=== PATIENT | female | born 1960 | race Caucasian/White ===

== ENCOUNTER 2020-07-08 15:00 | Emergency (ER) | payer OTHER, SELFPAY ==
[2020-07-08 15:14] VITALS: BP 120/59; PULSE 81; RESP 15; TEMP 36.9; O2SAT 100; BMI 20.7
--- NOTE | 2020-07-08 15:47 | ED_ITS ---
HPI - Female Genitourinary General Chief complaint: Urogenital-Female Stated complaint: Pressure in Pelvic Region, Feels Something There Time Seen by Provider: 07/08/20 15:12 Source: patient Mode of arrival: Ambulatory Limitations: no limitations History of Present Illness HPI Narrative: The patient is a 6-year-old female with history of hysterectomy and bowel obstruction presenting today with a pressure an abnormality in her vagina. She states she went to lift a heavy wheelbarrow full of rocks when she suddenly felt something in her vagina that was abnormal. This actually happened to her number of years ago which point she needed a hysterectomy. She said that she had bowel obstruction at that time as well. She has not urinated since the incident. She has no abdominal pain nausea or vomiting. She. He has some abnormality in her vagina. MD Complaint: pelvic pain Review of Systems Review of Systems Narrative: GENERAL: Denies chills,fever HEENT: Denies throat pain RESPIRATORY: Denies dyspnea, cough, wheezing CARDIOVASCULAR: Denies chest pain, palpitations WAREHOUSE SUPERVISOR: See HPI GASTROINTESTINAL: Denies nausea, vomiting MUSCULOSKELETAL: Denies extremity pain, injury SKIN: No rash, no laceration, no pruritus NEUROLOGIC: Denies weakness, dizziness, headache, numbness 8 point review of systems is negative except for those stated above and HPI Patient History alcohol intake frequency: 0-2 drinks per day Substance Use Type: does not use Exam Initial Vital Signs Initial Vital Signs: Vital Signs Temperature 98.5 F 07/08/20 15:14 Pulse Rate 81 07/08/20 15:14 Respiratory Rate 15 07/08/20 15:14 Blood Pressure 120/59 L 07/08/20 15:14 Pulse Oximetry 100 07/08/20 15:14 GENERAL: Well-appearing, well-nourished and in no acute distress. CARDIOVASCULAR: peripheral pulses in tact, cap refill <2 sec RESPIRATORY: No respiratory distress, speaks in full sentences without difficulty ABDOMEN: Soft, nontender, no guarding or rebound PELVIC: External genitalia is normal, no obvious protrusion however when patient does bear down I am able to feel some swelling midline. EXTREMITIES: Normal range of motion, no clubbing or edema. Neurovascularly intact NEUROLOGICAL: Cranial nerves II through XII grossly intact. Normal gait and speech. SKIN: Warm, dry, no petechiae, no rashes or lesions. Course Vital Signs Vital signs: Vital Signs - 8 hr 08/15/20 15:14 07/08/20 16:29 Temperature 98.5 F Pulse Rate 81 77 Respiratory Rate 15 18 Blood Pressure 120/59 L 122/60 Pulse Oximetry 100 99 MDM - Female Genitourinary MDM Narrative Medical decision making narrative: At this time no sign or symptoms of bowel obstruction no imaging indicated. Patient likely has a cystocele I recommend outpatient OBGYN consultation and referral Discharge Plan Departure Patient Disposition: Home Clinical Impression: Cystocele Qualifiers: Cystocele location: midline Qualified Code(s): N81.11 - Cystocele, midline Discharge Date/Time: 07/08/20 16:32 Instructions: Cystocele/Rectocele Activity Restrictions/Additional Instructions: *You have been diagnosed with cystocele *What to do: You may require surgical repair with a offset plate preparation supervisor specialist, however non emergent at this time. *Continue to take medications as directed *Follow up with your primary care provider in 2-3 days *Return to ER if you should have increasing discomfort, or any new, worsening or concerning symptoms Referrals: Suellen Vital MD [Primary Care Provider] -
[2020-07-08 16:29] VITALS: BP 122/60; PULSE 77; RESP 18; O2SAT 99
== END 2020-07-08 16:32 | disposition home or self-care (01) ==
PROVIDERS: Emergency Provider Emergency Medicine; PCP Student in an Organized Health Care Education/Training Program
DX: N81.11 Cystocele, midline (principal)
CPT/HCPCS: 36415; 99283

== ENCOUNTER → 2020-10-13 12:09 | Outpatient (CLI) | payer OTHER, SELFPAY ==
--- NOTE | 2020-10-13 | DI.US.S_ITS ---
PROCEDURE: US PELVIC COMPLETE INDICATIONS: POST MENOPAUSE, Family history of malignant neoplas TECHNIQUE: Real-time scanning was performed of the pelvic organs, with image documentation. Additional endovaginal scanning was necessary due to incomplete visualization of the adnexal and endometrial structures by transabdominal scanning. COMPARISON: None. FINDINGS: Transabdominal scanning: Limited scanning through the kidneys shows no hydronephrosis. No pathologic free abdominal or pelvic fluid. Endovaginal scanning: Uterus: The uterus has been removed. The vaginal cuff is unremarkable. Ovaries: The right ovary measures 1.9 x 1 x 1.2 cm. The left ovary measures 2.3 x 1.2 x 1.2 cm. The ovaries have a normal sonographic appearance. No adnexal masses are seen. Normal appearing arterial waveforms are confirmed to each ovary. IMPRESSION: No ovarian masses or adnexal masses are seen. Dictated by: Jono Swanson M.D. on 10/13/2020 at 13:08 Approved by: Jono Swanson M.D. on 10/13/2020 at 13:12
== END ==
PROVIDERS: PCP Student in an Organized Health Care Education/Training Program; Referring Provider Student in an Organized Health Care Education/Training Program; Visit Provider Student in an Organized Health Care Education/Training Program
DX: Z78.0 Asymptomatic menopausal state (principal); Z80.41 Family history of malignant neoplasm of ovary
CPT/HCPCS: 76830; 76856; 77080

== ENCOUNTER → 2020-11-13 15:57 | Outpatient (CLI) | payer OTHER, SELFPAY ==
--- NOTE | 2020-11-13 16:01 | DI.MG.S_ITS ---
BILATERAL DIGITAL SCREENING MAMMOGRAM 3D/2D WITH CAD: 11/13/2020 CLINICAL: Routine screening. Family history of breast cancer. Comparison is made to exams dated: 08/18/2018 mammogram and 09/09/2017 mammogram - outside location. The tissue of both breasts is heterogeneously dense. This may lower the sensitivity of mammography. Current study was also evaluated with a Computer Aided Detection (CAD) system. No significant masses, calcifications, or other findings are seen in either breast. There has been no significant interval change. IMPRESSION: NEGATIVE There is no mammographic evidence of malignancy. A 1 year screening mammogram is recommended. This exam was interpreted at Station ID: [id number]. NOTE: For mammograms, a report in lay terms will be sent to the patient. Approximately 15% of breast malignancies will not be visualized mammographically. In the management of a palpable breast mass, a negative mammogram must not discourage biopsy of a clinically suspicious lesion. Electronically Signed By: Fidel pfeiffer/millie:11/13/2020 16:44:57 letter sent: Normal Exam ACR BI-RADS Category 1: Negative 3341F
== END ==
PROVIDERS: PCP Student in an Organized Health Care Education/Training Program; Referring Provider Student in an Organized Health Care Education/Training Program; Visit Provider Student in an Organized Health Care Education/Training Program
DX: Z12.31 Encounter for screening mammogram for malignant neoplasm of breast (principal); Z80.3 Family history of malignant neoplasm of breast
CPT/HCPCS: 77063; 77067

== ENCOUNTER → 2020-12-13 09:07 | Outpatient (CLI) | payer OTHER, SELFPAY ==
--- NOTE | 2020-12-13 | DI.US.S_ITS ---
PROCEDURE: US EXTREMITY NONVASC LOWER RT INDICATIONS: RIGHT UPPER LEG NODULE TECHNIQUE: Real-time scanning was performed of the right thigh, with image documentation. COMPARISON: None. FINDINGS: At the area of clinical concern, scanning is performed and reveals 2 mildly hyperechoic superficial lumps that measure 1 x 0.7 x 0.6 cm and 0.4 x 0.4 x 0.3 cm, respectively. No abnormal vascularity can be seen. IMPRESSION: Small superficial subcutaneous lumps are seen, which most likely represent atypical lipomas. Additional diagnostic possibilities, such as sarcoma, are possible, yet considered to be much less likely. If clinically appropriate, please consider a follow-up ultrasound in 3-6 months. Dictated by: Jono Swanson M.D. on 12/13/2020 at 9:05 Approved by: Jono Swanson M.D. on 12/13/2020 at 9:07
== END ==
PROVIDERS: PCP Student in an Organized Health Care Education/Training Program; Referring Provider Student in an Organized Health Care Education/Training Program; Visit Provider Student in an Organized Health Care Education/Training Program
DX: R22.41 Localized swelling, mass and lump, right lower limb (principal)
CPT/HCPCS: 76882

== ENCOUNTER → 2021-06-11 10:39 | Outpatient (CLI) | payer OTHER, SELFPAY ==
--- NOTE | 2021-06-11 | DI.US.S_ITS ---
PROCEDURE: US EXTREMITY NONVASC LOWER RT INDICATIONS: THREE MONTH FOLLOW UP LUMP TECHNIQUE: Real-time scanning was performed of the right anteromedial mid thigh , with image documentation. COMPARISON: [facility], , EXTREMITY NONVASC LOWER RT, 12/13/2020, 9:22. FINDINGS: Multiple grayscale color Doppler images of the right anteromedial mid thigh were acquired. Redemonstration of 2 oval subcutaneous hyperechoic masses which are oriented parallel to the skin surface. The 2 masses are immediately deep to the skin surface. The larger, more inferior mass measures 1.0 cm x 0.7 cm x 0.7 cm, previously 1.0 cm x 0.7 cm x 0.6 cm. There is mild adjacent vascularity. No internal vascularity seen. The smaller, more superior mass measures 0.3 cm x 0.4 cm x 0.3 cm, previously 0.4 cm x 0.4 cm x 0.3 cm. No new mass lesions identified. IMPRESSION: Stable sonographic appearance of oval subcutaneous echogenic masses likely representing lipomas. These have remained stable since November 2020. Consider follow-up imaging in 6-12 months to document long-term stability. If patient notices that these masses increase in size in the interim, recommend repeat imaging sooner. Dictated by: Fidel Dorsey M.D. on 06/11/2021 at 12:09 Approved by: Fidel Dorsey M.D. on 06/11/2021 at 12:15
== END ==
PROVIDERS: PCP Student in an Organized Health Care Education/Training Program; Referring Provider Student in an Organized Health Care Education/Training Program; Visit Provider Student in an Organized Health Care Education/Training Program
DX: R22.41 Localized swelling, mass and lump, right lower limb (principal)
CPT/HCPCS: 76882

== ENCOUNTER → 2021-12-17 11:09 | Outpatient (CLI) | payer OTHER, SELFPAY | PROVIDERS: PCP Student in an Organized Health Care Education/Training Program; Referring Provider Student in an Organized Health Care Education/Training Program; Visit Provider Student in an Organized Health Care Education/Training Program | DX: Z12.31 Encounter for screening mammogram for malignant neoplasm of breast (principal); Z53.8 Procedure and treatment not carried out for other reasons | CPT/HCPCS: 77063; 77067 ==

== ENCOUNTER 2021-12-30 20:01 | Emergency (ER) | payer OTHER, SELFPAY ==
[2021-12-30 20:10] VITALS: BP 152/70; PULSE 92; RESP 18; TEMP 37.2; O2SAT 99
[2021-12-30 20:27] LABS: Bilirubin Urine UA NEGATIVE (NEGATIVE); Color Urine UA RED; Glucose Urine UA TRACE g/dL (Negative); Ketones Urine UA NEGATIVE (NEGATIVE); Leukocyte Esterase Urine UA 1+ (NEGATIVE); Nitrite Urine UA NEGATIVE (Negative); Occult Blood Urine UA 3+ (Negative); Protein Urine UA 3+ (Negative); Urobilinogen Urine UA 0.2 E.U./dL (0.2)
[2021-12-30 20:30] LABS: Appearance Urine UA Turbid; RBC Urine >100/HPF (0-5/HPF); WBC Urine 10-30/HPF (0-5/HPF); pH Urine UA 7.5 (4.5-8.0)
[2021-12-30 20:31] LABS: Bacteria Urine Occasional (0-1); Culture Indicated Urine Specimen Cultured
--- NOTE | 2021-12-30 20:38 | ED.GENADULT ---
HPI - General Adult General Chief complaint: Urogenital-Female Stated complaint: blood in urin/painful to urine Time Seen by Provider: 12/30/21 20:21 Source: patient Mode of arrival: Ambulatory History of Present Illness HPI narrative: Otherwise healthy 61-year-old woman presents with acute dysuria, hematuria, low pelvic pain with increasing abdominal bloating all starting approximately 5-6 hours prior to presentation. She notes that she has frequent hot flashes and flushes but has not noticed any overt fevers. She has noticed flank pain, vomiting, diarrhea, constipation, chest pain, palpitations, shortness of breath. She has no vaginal discharge. Related Data Previous Rx's Medication Instructions Recorded phenazopyridine 100 mg tablet 100 mg PO TID PRN #6 tab 12/30/21 (Pyridium) sulfamethoxazole 800 1 tab PO BID #10 tab 12/30/21 mg-trimethoprim 160 mg tablet (Bactrim DS) Allergies Allergy/AdvReac Type Severity Reaction Status Date / Time No Known Drug Allergies Allergy Verified 12/30/21 20:28 Review of Systems Review of Systems Narrative: Remainder of complete review of systems is otherwise unremarkable except for that included in the HPI. Patient History Social History Smoking Status: Never smoker Smoking Status: Never smoker alcohol intake frequency: 0-2 drinks per day Substance Use Type: does not use Exam Initial Vital Signs Initial Vital Signs: Vital Signs Temperature 98.9 F 12/30/21 20:10 Pulse Rate 92 H 12/30/21 20:10 Respiratory Rate 18 12/30/21 20:10 Blood Pressure 152/70 H 12/30/21 20:10 Pulse Oximetry 99 12/30/21 20:10 General: Alert appropriate in no acute distress Respiratory: Able to speak in full sentences, no obvious respiratory distress Abdomen: Mild suprapubic tenderness. No flank pain Skin: No obvious rashes, warm and dry Neurologic: Grossly intact no obvious asymmetries or abnormalities Psych: appropriate insight and affect, cooperative Course Orders Ordered: Discontinued Medications Phenazopyridine HCl (Phenazopyridine 100 Mg Tablet) 100 mg PO NOW ONE Stop: 12/30/21 20:57 Last Admin: 12/30/21 21:04 Dose: 100 mg Documented by: CHRIS Trimethoprim/Sulfamethoxazole (Trimeth/Sulfa 160/800 (Ds) Tablet) 1 tab PO NOW ONE Stop: 12/30/21 20:57 Last Admin: 12/30/21 21:04 Dose: 1 tab Documented by: CHRIS Vital Signs Vital signs: Vital Signs - 8 hr 12/30/21 20:10 Temperature 98.9 F Pulse Rate 92 H Respiratory Rate 18 Blood Pressure 152/70 H Pulse Oximetry 99 Medical Decision Making Lab Data Labs: Lab Results 12/30/21 Range/Units 20:15 Urine Color Red Urine Appearance Turbid Urine pH 7.5 (4.5-8.0) Ur Specific [place] 1.020 (1.000-1.035) Urine Protein 3+ H (Negative) Urine Glucose (UA) Trace H (Negative) g/dL Urine Ketones Negative (NEGATIVE) Urine Occult Blood 3+ H (Negative) Urine Nitrate Negative (Negative) Urine Bilirubin Negative (NEGATIVE) Urine Urobilinogen 0.2 (0.2) E.U./dL Ur Leukocyte Esterase 1+ H (NEGATIVE) Urine RBC >100/hpf H (0-5/HPF) Urine WBC 10-30/hpf H (0-5/HPF) Urine Bacteria Occasional (0-1) (None) Ur Culture Indicated? Specimen cultured MDM Narrative Medical decision making narrative: 61-year-old woman with acute onset dysuria shortly followed by hematuria with urinalysis that very much looks like a urinary tract infection. She has no signs or symptoms to suggest sepsis, kidney stone or malignancy. She will be treated with Septra for 5 days with urine cultured. If culture suggests alternate antibiotic is required we will contact her by phone. Findings reviewed with her questions are answered and she is safe for home discharge Discharge Plan Departure Patient Disposition: Home Clinical Impression: Urinary tract infection Instructions: DI for Urinary Tract Infection (UTI) Activity Restrictions/Additional Instructions: Thank you for coming in today Your urinalysis very much looks like a bladder infection. I have given you a prescription for Septra/Bactrim/trimethoprim sulfamethoxazole -a sulfa antibiotic for treating bladder infections. Please take it twice a day for the next 5 days You can use peridium to help with the bladder discomfort Prescriptions were sent to [facility]' to be picked up tomorrow If you do develop fevers, worsening pain, kidney pain or new symptoms it would be very appropriate to return to the emergency department I hope you feel better quickly Prescriptions: New sulfamethoxazole-trimethoprim [Bactrim DS] 800-160 mg tablet 1 tab PO BID Qty: 10 0RF phenazopyridine [Pyridium] 100 mg tablet 100 mg PO TID PRN (Reason: pain) Qty: 6 0RF Referrals: Suellen Vital MD [Primary Care Provider] -
[2021-12-30] MEDS: TRIMETH/SULFA 160/800 (DS) TABLET 1 TAB PO (21:04)
[2021-12-30] MEDS: PHENAZOPYRIDINE 100 MG TABLET PO (21:04)
== END 2021-12-30 21:09 | disposition home or self-care (01) ==
PROVIDERS: Emergency Provider Emergency Medicine; PCP Student in an Organized Health Care Education/Training Program
DX: N39.0 Urinary tract infection, site not specified (principal)
CPT/HCPCS: 81001; 87077; 87086; 87186; 99283

== ENCOUNTER → 2022-01-15 12:40 | Outpatient (CLI) | payer OTHER, SELFPAY ==
--- NOTE | 2022-01-15 | DI.MG.S_ITS ---
BILATERAL DIGITAL DIAGNOSTIC MAMMOGRAM 3D/2D: 01/15/2022 CLINICAL: Left breast tenderness. Comparison is made to exams dated: 11/13/2020 mammogram - [facility], 08/18/2018 mammogram, and 09/09/2017 mammogram - outside location. The tissue of both breasts is heterogeneously dense. This may lower the sensitivity of mammography. No significant masses, calcifications, or other findings are seen in either breast. IMPRESSION: NEGATIVE There is no abnormality seen in the left breast to correspond with the area of clinical concern described as intermittent diffuse pain, however, recommend clinical follow up for persistent or worsening symptoms, or development of any clinically suspicious findings. There is no mammographic evidence of malignancy. A 1 year screening mammogram is recommended. Findings and recommendations were conveyed to the patient during today's evaluation. This exam was interpreted at Station ID: [id number]. NOTE: For mammograms, a report in lay terms will be sent to the patient. Approximately 15% of breast malignancies will not be visualized mammographically. In the management of a palpable breast mass, a negative mammogram must not discourage biopsy of a clinically suspicious lesion. Electronically Signed By: Fidel Dorsey M.D. aty/:01/15/2022 13:23:14 letter sent: Clinical Evaluation ACR BI-RADS Category 1: Negative 3341F
== END ==
PROVIDERS: PCP Student in an Organized Health Care Education/Training Program; Referring Provider Student in an Organized Health Care Education/Training Program; Visit Provider Student in an Organized Health Care Education/Training Program
DX: N64.4 Mastodynia (principal)
CPT/HCPCS: 77066; G0279

== ENCOUNTER → 2022-05-21 14:51 | Outpatient (CLI) | payer OTHER, SELFPAY ==
--- NOTE | 2022-05-21 | DI.RAD.S_ITS ---
PROCEDURE: XR CHEST 2V INDICATIONS: cough TECHNIQUE: 2 views of the chest were acquired. COMPARISON: None. FINDINGS: Surgical changes and devices: None. Lungs and pleura: Lungs are clear. No pleural effusions or pneumothorax. Mediastinum: Mediastinal contours are normal. Heart size is normal. Bones and chest wall: No suspicious bony abnormalities. Soft tissues appear unremarkable. IMPRESSION: No acute cardiopulmonary disease. Dictated by: Elzbieta Rashid M.D. on 05/21/2022 at 17:38 Approved by: Elzbieta Rashid M.D. on 05/21/2022 at 17:38
== END ==
PROVIDERS: PCP Internal Medicine; Referring Provider Internal Medicine; Visit Provider Internal Medicine
DX: R05.1 Acute cough (principal)
CPT/HCPCS: 71046

== ENCOUNTER → 2022-12-27 11:59 | Outpatient (ROUT) | payer OTHER, SELFPAY ==
[2022-12-27 12:42] LABS: Influenza A - CEPHEID Flu A NEGATIVE (NEGATIVE); Influenza B - CEPHEID Flu B NEGATIVE (NEGATIVE); Respiratory Syncytial Virus Negative (Negative)
[2022-12-27 12:45] LABS: COVID-19 CEPHEID 4-PLEX PCR Negative (Negative)
== END ==
PROVIDERS: PCP Internal Medicine; Visit Provider Registered Nurse
DX: J02.8 Acute pharyngitis due to other specified organisms (principal)
CPT/HCPCS: 0241U

== ENCOUNTER → 2023-02-27 15:16 | Outpatient (CLI) | payer OTHER, SELFPAY ==
--- NOTE | 2023-02-27 | DI.MG.S_ITS ---
BILATERAL DIGITAL SCREENING MAMMOGRAM 3D/2D WITH CAD: 02/27/2023 CLINICAL: Routine screening. Family history of breast cancer. Comparison is made to exams dated: 01/15/2022 mammogram and 11/13/2020 mammogram - [facility]. Both breasts are heterogeneously dense, which may obscure small masses (category c / 51-75% glandular tissue). Current study was also evaluated with a Computer Aided Detection (CAD) system. No significant masses, calcifications, or other findings are seen in either breast. There has been no significant interval change. IMPRESSION: NEGATIVE There is no mammographic evidence of malignancy. A 1 year screening mammogram is recommended. Based on the Tyrer Cuzick model (a risk assessment model) the patient's lifetime risk is 7.6% and her 10 year risk is 3.3%. According to the ACR, ACS, and NCCN guidelines, an annual breast MRI exam along with mammogram is recommended if the patient's lifetime risk is 20% or greater. This exam was interpreted at Station ID: [id number]. NOTE: For mammograms, a report in lay terms will be sent to the patient. Approximately 15% of breast malignancies will not be visualized mammographically. In the management of a palpable breast mass, a negative mammogram must not discourage biopsy of a clinically suspicious lesion. Electronically Signed By: Nemesio cardenas/millie:02/28/2023 09:51:42 letter sent: Normal Exam ACR BI-RADS Category 1: Negative 3341F
--- NOTE | 2023-02-27 15:43 | DI.DEXA.S_ITS ---
Bone Density Report Name: JEROME PEACE Age: 62 Sex: Female Ethnicity: White Date of : 1960 Indication: osteopenia; Referring Provider: JOHN GTZ Study: Bone densitometry was performed. Exam Date: February 27, 2023 Accession number: [id number] Bone Density: Region BMD T-score Z-score Classification AP Spine(L1-L4) 0.895 -1.4 0.2 Osteopenia Femoral Neck (Left) 0.616 -2.1 -0.7 Osteopenia Total Hip (Left) 0.737 -1.7 -0.6 Osteopenia Femoral Neck (Right) 0.548 -2.7 -1.3 Osteoporosis Total Hip (Right) 0.684 -2.1 -1.0 Osteopenia Total Hip Mean 0.710 -1.9 -0.8 Osteopenia World Health Organization criteria for BMD impression classify patients as: Normal (T-score at or above -1.0), Osteopenia (T-score between -1.0 and -2.5), or Osteoporosis (T-score at or below -2.5). 10-year Fracture Risk: FRAX not reported because: Some T-score for Spine Total or Hip Total or Femoral Neck at or below -2.5 Previous Exams: -- Region Exam Age BMD T-score BMD Change BMD Change Date g/cm2 vs Baseline vs Previous -- AP Spine (L1-L4) 02/27/2023 62 0.895 -1.4 -0.116 (-11.5%)# -0.116 (-11.5%)# 10/13/2020 60 1.011 -0.3 Total Hip(Left) 02/27/2023 62 0.737 -1.7 0.010 (1.4%)# 0.010 (1.4%)# 10/13/2020 60 0.727 -1.8 Total Hip(Right) 02/27/2023 62 0.684 -2.1 -0.033 (-4.6%)# -0.033 (-4.6%)# 10/13/2020 60 0.717 -1.8 -- *Denotes significance at 95% confidence level, LSC for AP Spine = 0.022 g/cm2, LSC for Total Hip = 0.027 g/cm2 # Denotes dissimilar scan types or analysis methods Impression: The patient has osteoporosis, based on the Right Femoral Neck T-score. No significant bone loss was observed. Discussion: INCREASED RISK OF FRACTURE. BONE DENSITY IS UNDESIRABLY LOW AT ONE OR MORE SKELETAL SITES, CONSISTENT WITH POSTMENOPAUSAL OSTEOPOROSIS. This patient's lowest T-score meets the World Health Organization's (WHO) criteria for osteoporosis at one or more sites (T-score -2.5 or below). In untreated patients, the risk of osteoporotic fracture increases approximately two-fold for each 1.0 SD decrease in T-score. Low bone density is not the only risk factor for fracture; also consider factors such as patient's age, frailty or poor health, risk of falling, risk of injury, previous osteoporotic fracture, family history of osteoporosis, cigarette smoking, low body weight, etc. Not everyone with low bone mineral density has osteoporosis; osteomalacia and other metabolic bone disorders should also be considered. Patients who have osteoporosis should be evaluated for specific diseases and conditions (secondary causes) that may cause or contribute to bone loss. The [place] Association [employer] Clinical Endocrinologists (AACE) and National Osteoporosis Foundation (NOF) recommend pharmacologic intervention for all postmenopausal women whose T-score is in this range. The patient should follow a healthful lifestyle (good nutrition with adequate calcium and vitamin D, and appropriate weight-bearing exercise). Follow-Up: Consider a repeat BMD and Vertebral Fracture Assessment (VFA) exam in 2 years or sooner if medically necessary, to reassess this patient's status. Reported by: MAGGY WILKS M.D. on 02/27/2023 3:54:00 PM.
== END ==
PROVIDERS: PCP Internal Medicine; Referring Provider Registered Nurse; Visit Provider Registered Nurse
DX: Z12.31 Encounter for screening mammogram for malignant neoplasm of breast (principal); Z80.3 Family history of malignant neoplasm of breast; M81.0 Age-related osteoporosis without current pathological fracture; Z78.0 Asymptomatic menopausal state; Z90.710 Acquired absence of both cervix and uterus
CPT/HCPCS: 77063; 77067; 77080

== ENCOUNTER → 2023-12-04 09:35 | Outpatient (CLI) | payer OTHER, SELFPAY | PROVIDERS: PCP Internal Medicine; Visit Provider Student in an Organized Health Care Education/Training Program | DX: R30.0 Dysuria (principal) | CPT/HCPCS: 87077; 87086; 87186 ==

== ENCOUNTER → 2023-12-11 10:03 | Outpatient (CLI) | payer OTHER, SELFPAY | PROVIDERS: PCP Internal Medicine; Visit Provider Nurse Practitioner Family | DX: R35.0 Frequency of micturition (principal) | CPT/HCPCS: 87086; 87210 ==

== ENCOUNTER → 2024-04-01 07:36 | Outpatient (CLI) | payer OTHER, SELFPAY ==
[2024-04-01 09:22] LABS: Alanine Aminotransferase 17 IU/L (<35); Albumin 4.3 g/dL (3.5-5.0); Albumin Globulin Ratio 1.9 (1.0-2.8); Alkaline Phosphatase 82 U/L (38-126); Aspartate Aminotransferase 26 IU/L (14-36); BUN Creatinine Ratio 16.7 (6-22); Bilirubin Total 0.7 mg/dL (0.2-1.3); Blood Urea Nitrogen 10 mg/dL (7-17); Calcium 9.5 mg/dL (8.4-10.2); Carbon Dioxide 30 mmol/L (22-32); Chloride 106 mmol/L (98-107); Cholesterol 174 mg/dL (140-199); Estimated Glomerular Filt Rate > 60 mL/min (>60); Globulin 2.3 g/dL (1.7-4.1); Glucose 85 mg/dL (80-110); HDL Cholesterol 83 mg/dL (40-60); HEMOLYSIS < 15 (0-50); LDL Cholesterol Calculated 73 mg/dL (<100); Potassium 4.2 mmol/L (3.4-5.1); Sodium 139 mmol/L (137-145); Total Protein 6.6 g/dL (6.3-8.2); Triglycerides 90 mg/dL (35-150)
== END ==
PROVIDERS: PCP Family Medicine; Referring Provider Family Medicine; Visit Provider Family Medicine
DX: N39.0 Urinary tract infection, site not specified (principal); M85.80 Other specified disorders of bone density and structure, unspecified site
CPT/HCPCS: 36415; 80053; 80061

== ENCOUNTER → 2024-04-02 07:56 | Outpatient (CLI) | payer OTHER, SELFPAY ==
[2024-04-02 08:56] LABS: Cancer Antigen 125 8.2 U/mL (0-35)
== END ==
PROVIDERS: PCP Family Medicine; Visit Provider Family Medicine
DX: Z12.73 Encounter for screening for malignant neoplasm of ovary (principal); Z80.41 Family history of malignant neoplasm of ovary
CPT/HCPCS: 86304

== ENCOUNTER → 2024-04-05 16:00 | Outpatient (CLI) | payer OTHER, SELFPAY ==
--- NOTE | 2024-04-05 16:01 | DI.MG.S_ITS ---
BILATERAL DIGITAL SCREENING MAMMOGRAM 3D/2D WITH CAD: 04/05/2024 CLINICAL: Routine screening. Family history of breast cancer. Comparison is made to exams dated: 02/27/2023 mammogram, 01/15/2022 mammogram, and 11/13/2020 mammogram - [facility]. Both breasts are heterogeneously dense, which may obscure small masses (category c / 51-75% glandular tissue). Current study was also evaluated with a Computer Aided Detection (CAD) system. No significant masses, calcifications, or other findings are seen in either breast. There has been no significant interval change. IMPRESSION: NEGATIVE There is no mammographic evidence of malignancy. A 1 year screening mammogram is recommended. Based on the Tyrer Cuzick model (a risk assessment model) the patient's lifetime risk is 7.1% and her 10 year risk is 3.3%. According to the ACR, ACS, and NCCN guidelines, an annual breast MRI exam along with mammogram is recommended if the patient's lifetime risk is 20% or greater. This exam was interpreted at Station ID: [id number]. NOTE: For mammograms, a report in lay terms will be sent to the patient. Approximately 15% of breast malignancies will not be visualized mammographically. In the management of a palpable breast mass, a negative mammogram must not discourage biopsy of a clinically suspicious lesion. Electronically Signed By: Fidel aguilar/millie:04/06/2024 17:36:20 letter sent: Normal Exam ACR BI-RADS Category 1: Negative 3341F
== END ==
PROVIDERS: PCP Family Medicine; Referring Provider Family Medicine; Visit Provider Family Medicine
DX: Z12.31 Encounter for screening mammogram for malignant neoplasm of breast (principal); Z80.3 Family history of malignant neoplasm of breast; R92.333 Mammographic heterogeneous density, bilateral breasts
CPT/HCPCS: 77063; 77067

== ENCOUNTER 2024-08-12 20:34 | Emergency (ER) | payer OTHER, SELFPAY ==
[2024-08-12 20:39] VITALS: BP 109/56; PULSE 72; RESP 18; TEMP 36.9; O2SAT 97; BMI 20.5
--- NOTE | 2024-08-12 20:54 | DI.RAD.S_ITS ---
PROCEDURE: XR HUMERUS RT 2V INDICATIONS: fall down hill. Guarding R arm TECHNIQUE: 2 views of the humerus were acquired. COMPARISON: None. FINDINGS: Bones: No acute displaced humeral fracture. Soft tissues: No suspicious calcifications IMPRESSION: No acute displaced humeral fracture. Background degenerative changes. If there is high concern for occult injury, consider repeat radiography or cross-sectional imaging. Dictated by: Roberto Valverde M.D. on 08/12/2024 at 21:58 Approved by: Roberto Valverde M.D. on 08/12/2024 at 21:59
--- NOTE | 2024-08-12 20:54 | DI.RAD.S_ITS ---
PROCEDURE: XR FOREARM RT 2V INDICATIONS: fall down hill. Guarding R arm TECHNIQUE: 2 views of the forearm were acquired. COMPARISON: None. FINDINGS: Bones: No acute displaced fracture. No dislocation. Soft tissues: No suspicious calcifications. IMPRESSION: No acute radiographic abnormality. If there is high concern for occult injury, consider repeat radiography or cross-sectional imaging. Approved by: Roberto Valverde M.D. on 08/12/2024 at 22:01
--- NOTE | 2024-08-12 20:54 | DI.RAD.S_ITS ---
PROCEDURE: XR SHOULDER RT MIN 2V INDICATIONS: fall down hill. Guarding R arm TECHNIQUE: 3 views of the shoulder were acquired. COMPARISON: None. FINDINGS: Bones: Mild degenerative changes without acute displaced fracture or dislocation. Soft tissues: No suspicious calcifications IMPRESSION: No acute radiographic abnormality. Mild degenerative changes. If there is high concern for occult injury, consider repeat radiography or cross-sectional imaging. Dictated by: Roberto Valverde M.D. on 08/12/2024 at 21:57 Approved by: Roberto Valverde M.D. on 08/12/2024 at 21:57
--- NOTE | 2024-08-12 20:54 | DI.RAD.S_ITS ---
PROCEDURE: XR HAND RT MIN 3V INDICATIONS: fall down hill. Guarding R arm TECHNIQUE: 3 views of the hand(s) acquired. COMPARISON: None. FINDINGS: Bones: [id number] background degenerative changes, particularly at the base of the thumb and 2nd and 3rd PIP joints. No acute displaced fracture or dislocation. Soft tissues: No suspicious calcifications. IMPRESSION: No acute displaced fracture or dislocation. [id number] background degenerative changes. If there is high concern for occult injury, consider repeat radiography or cross-sectional imaging. Dictated by: Roberto Valverde M.D. on 08/12/2024 at 21:59 Approved by: Roberto Valverde M.D. on 08/12/2024 at 22:00
--- NOTE | 2024-08-12 20:54 | DI.RAD.S_ITS ---
PROCEDURE: XR ANKLE RT MIN 3V INDICATIONS: fall down hill. Guarding R arm TECHNIQUE: 3 views of the ankle were acquired. COMPARISON: None. FINDINGS: Bones: No acute displaced fracture or dislocation. Mild background degenerative changes. Soft tissues: Calcification is seen projecting over the mid plantar fascia. IMPRESSION: No acute radiographic abnormality. Mild background degenerative changes. If there is high concern for occult injury, consider repeat radiography or cross-sectional imaging. Dictated by: Roberto Valverde M.D. on 08/12/2024 at 22:01 Approved by: Roberto Valverde M.D. on 08/12/2024 at 22:02
[2024-08-12 22:52] VITALS: BP 104/51; PULSE 65; RESP 18; TEMP 37.1; O2SAT 98
[2024-08-13 00:42] VITALS: PULSE 67; O2SAT 100
[2024-08-13 00:43] VITALS: BP 115/55; PULSE 65; O2SAT 98
[2024-08-13 00:45] VITALS: BP 115/55; PULSE 66; RESP 17; O2SAT 95
[2024-08-13 01:00] VITALS: PULSE 67; RESP 18; O2SAT 97
--- NOTE | 2024-08-13 01:01 | ED.GENADULT ---
HPI - General Adult General Chief complaint: Extremity Injury, Upper Stated complaint: fall in yard Time Seen by Provider: 08/13/24 00:42 Source: patient and family Mode of arrival: Ambulatory History of Present Illness HPI narrative: Otherwise healthy 64-year-old woman stumbled in her yd tumbling down a steep incline with the majority of the impact of her fall along the right side of her body. She did not hit her head, there was no loss of consciousness she was eventually able to get up and walk back up the hill to get to the driveway. She is complaining of shoulder elbow wrist and hand pain on the right side as well as abrasion and tenderness to the lateral aspect of her right ankle. She is able to walk. Not complaining of any head neck thoracic abdominal or pelvic injuries. Related Data Home Medications Medication Instructions Recorded Confirmed No Known Home Medications 03/05/24 03/05/24 Allergies Allergy/AdvReac Type Severity Reaction Status Date / Time No Known Drug Allergies Allergy Verified 08/12/24 20:52 Review of Systems Review of Systems Narrative: Pertinent positive and negative findings as per HPI Patient History Medical History Family history of ovarian cancer Osteopenia (~08/2012) Cataracts, bilateral (~06/2010) Frequent UTI Skin cancer, basal cell Surgical History Anesthesia History of arthroscopy of left shoulder (~08/2009) S/P arthroscopic surgery of right knee (~03/1994) History of hysterectomy (~03/2005) Family History Father Congestive heart failure Mother No problems noted. Sister Teratoma of ovary Sister History of blood clots Obesity Diabetes mellitus Hypertension Hyperlipidemia Sister History of blood clots Grandfather History of heart disease Grandmother History of heart disease Grandfather History of heart disease Grandmother Cancer Social History Smoking Status: Never smoker Smoking Status: Never smoker alcohol intake frequency: a few times a month Substance Use Type: does not use Exam Initial Vital Signs Initial Vital Signs: Vital Signs Temperature 98.5 F 08/12/24 20:39 Pulse Rate 72 08/12/24 20:39 Respiratory Rate 18 08/12/24 20:39 Blood Pressure 109/56 L 08/12/24 20:39 Pulse Oximetry 97 08/12/24 20:39 Oxygen Delivery Method Room Air 08/12/24 20:39 General: Healthy appearing, in no acute distress. Able to give a complete and coherent history. Well-nourished well-developed HEENT: Moist mucous membranes, normal sclera with reactive pupils, Neck: supple Respiratory: Lungs are clear to auscultation, no wheezing no rales no rhonchi. Full and symmetrical air movement. No tenderness with compression of the chest wall. No tenderness along the thoracic spine Cardiac: Regular rate and rhythm no murmurs no bruits Abdomen: Soft, nontender, good bowel tones, no flank pain Skin: Warm and dry, abrasion to the lateral aspect of the right ankle with contusion and minor abrasion to both knees Neurologic: Grossly neurologically intact with no obvious asymmetries or abnormalities Extremities: Tenderness to the right shoulder with no obvious abrasions contusions or bony abnormalities. She does have full range of motion of the shoulder although there is some tenderness. She is able to fully extend her elbow and has full range of motion of the wrist. The D IP joint on her middle finger is slightly swollen. It was minor abrasion to the base of her wrist on the right hand Psych: Cooperative, appropriate insight and affect Course Orders Ordered: ED Orders 08/12/24 20:54 XR ankle RT min 3V Stat XR forearm RT 2V Stat XR hand RT min 3V Stat XR humerus RT 2V Stat XR shoulder RT min 2V Stat Vital Signs Vital signs: Vital Signs - 8 hr 08/12/24 20:39 08/12/24 22:52 08/13/24 00:45 Temperature 98.5 F 98.8 F Pulse Rate 72 65 66 Respiratory Rate 18 18 17 Blood Pressure 109/56 L 104/51 L 115/55 L Pulse Oximetry 97 98 95 Oxygen Delivery Method Room Air Room Air Room Air Medical Decision Making MDM Narrative Medical decision making narrative: CC: Fall with the majority of the impact along her right side Data collected from: patien, has been Differential considered: Abrasions, contusions, fractures, significant trauma Exam documented above, pertinent findings include: Tenderness with minor abrasions and contusions. No obvious bony injuries. Neurovascularly intact through the entire right upper extremity. Imaging studies independently reviewed: X-ray shoulder, right. No significant bony injuries X-ray right humerus, no fractures X-ray right hand no fractures X-ray right forearm, no fractures X-ray right ankle, no fractures Treatments: Ibuprofen, Percocet, wounds are cleaned sling is placed for the right arm by nursing staff. She is neurovascularly intact pre and post sling placement Discussion: 64-year-old woman who stumbled/fell into a rock wall of the end of her yd. Abrasions and contusions to the right side with pain at the shoulder elbow wrist and right ankle and no fractures appreciated on x-ray. We did discuss the possibility that there could be ligamentous injury and I encouraged her to see her primary care physician if she is having continuous pain after 2-3 weeks. We talked about anticipated course of resolution with current symptoms including increasing pain tomorrow. Questions are answered there is no indication for additional blood work or hospitalization tonight she is safe for discharge Discharge Plan Departure Patient Disposition: Home Clinical Impression: Fall Qualifiers: Encounter type: initial encounter Qualified Code(s): W19.XXXA - Unspecified fall, initial encounter Abrasion hand Qualifiers: Encounter type: initial encounter Laterality: right Qualified Code(s): S60.511A - Abrasion of right hand, initial encounter Contusion Qualifiers: Encounter type: initial encounter Contusion area: shoulder Laterality: right Qualified Code(s): S40.011A - Contusion of right shoulder, initial encounter Right shoulder strain Qualifiers: Encounter type: initial encounter Qualified Code(s): S46.911A - Strain of unspecified muscle, fascia and tendon at shoulder and upper arm level, right arm, initial encounter Strain of right elbow Qualifiers: Encounter type: initial encounter Qualified Code(s): S56.911A - Strain of unspecified muscles, fascia and tendons at forearm level, right arm, initial encounter Contusion of right middle finger Qualifiers: Encounter type: initial encounter Damage to nail status: without damage Qualified Code(s): S60.031A - Contusion of right middle finger without damage to nail, initial encounter Activity Restrictions/Additional Instructions: Thank you for coming in today You clearly injured herself in multiple areas fortunately did not break any bones. You are going to have multiple bruises and abrasions and you likely are going to be sore in more areas over the next day or 2. Using 400 mg of ibuprofen (2 [id number] pills) and 1 Tylenol every 6 hours can be very helpful in controlling pain. For severe pain using 400 mg of ibuprofen and 1 Percocet can be helpful It is okay to walk use your arm wrist elbow and shoulder as your pain allows. If you find that you are having increasing pain or symptoms are getting worse or simply not improving at 2-3 weeks you do need to be re-evaluated. I would recommend follow up with your primary care physician and advanced imaging such as MRI to see if there has been soft tissue injury may be required. Prescriptions: No Action No Known Home Medications Referrals: Raine Silveira MD [Primary Care Provider] - Stand Alone Forms: Patient Portal/API
[2024-08-13] MEDS: OXYCODONE/ACETAMINOPHEN 5/325 TABLET 1 TAB PO (01:24)
[2024-08-13] MEDS: IBUPROFEN 400 MG TABLET PO (01:24)
[2024-08-13] MEDS: OXYCODONE/APAP 5/325 PREPACK 1 BOTTLE MISC (01:25)
[2024-08-13] MEDS: BACITRACIN OINT 0.9 GM PCKT 1 APPLIC TOP (01:34)
== END 2024-08-13 01:45 | disposition home or self-care (01) ==
PROVIDERS: Emergency Provider Emergency Medicine; PCP Family Medicine
DX: S60.511A Abrasion of right hand, initial encounter (principal); S40.011A Contusion of right shoulder, initial encounter; S46.911A Strain of unspecified muscle, fascia and tendon at shoulder and upper arm level, right arm, initial encounter; S56.911A Strain of unspecified muscles, fascia and tendons at forearm level, right arm, initial encounter; S60.031A Contusion of right middle finger without damage to nail, initial encounter; W18.30XA Fall on same level, unspecified, initial encounter
CPT/HCPCS: 73030; 73060; 73090; 73130; 73610; 99283; 99284

== ENCOUNTER 2025-03-21 07:30 | Outpatient (RCR) | payer OTHER, SELFPAY ==
--- NOTE | 2025-02-21 14:25 | OT.OPPOC ---
Physical, Occupational & Speech Therapy At [facility] Umu Armas [id number] 1960 Visit Care Team Role Provider Type Raine Silveira MD Attending Provider Physician Family Provider Primary Care Provider Referring Provider Address: [facility] [place], [address] Fax: Occupational Therapy Plan of Care OT Outpatient Adult Evaluation Start: 02/21/25 09:46 Freq: Status: Active Protocol: Document 02/21/25 09:46 ANALILIZ (Rec: 02/21/25 14:23 [email or web address] [id number]) General Information - Adult Visit Information Visit Number 12/03 Plan of Care Dates 02/21/25 - 03/28/25 Insurance Information [facility] Choice (Commercial), $2500 deductible, max 60 PT/OT/ST combined Session Time Visit Start Date 02/21/25 Visit Start Time 09:45 Visit Stop Time 10:30 Setting Treatment Setting Outpatient Care Visit Type Note Type Initial Evaluation Referral Referring Physician Raine Silveira MD Reason for Referral B trigger finger, ganglion cyst, arthritis, impaired function, injury hand Identification Identification Confirmed Yes Identification Confirmed By name, EMR Patient Questionnaires Quick Dash- Upper Extremity Quick Dash UE Score 34.1 Quick Dash UE Impairment 20 to 39% Impaired (Score 20- 39) Quick Dash- Work and Sports Modules Quick Dash W&S Score S 50 Quick Dash Work and Sport Impairment 40 to 59% Impaired (Score 40- 59) OT Pain Assessment Pain When Pain Assessed During Exercise Pain Present Pain Present Pain Reported Location Bilateral Hand Intensity 4 Scale Used Numeric (0 - 10) Pain Behaviors Calling Out,Wincing Goals Objective Measurements Objective Measurements Kapandji Opposition R 9/10, L 10/10 Kapandji Retroposition R 2/4, L 3.5/4 AROM R hand: 1st: CMC RA 52, CMC PA 55; MP +10 to 43; IP +20 to 70 2nd: MP +12 to 90; PIP +10 to 38; DIP 0 to 52 3rd: MP +10 to 82; PIP 0 to 20 ; DIP -10 to 62 AROM L hand: 1st: CMC RA 50, CMC PA 60; MP +12 to 40; IP +30 to 79 2nd: MP -10 to 84; PIP +10 to 72; DIP -4 to 22 3rd: MP -10 to 82; PIP +2 to 12; DIP +2 to 40 Sow Farm Manager (c p!): R 22, 25, 15 (avg 20.7#); L 20, 20, 20 (avg 20# ) Pinch: lateral R 11#, L 11#; pincer R 4#, L 5#; 3 jaw R 9#, L 7# Treatment Treatment retrograde massage education. PROM PIP and DIP education for HEP. Short Term Goals Short Term Goals 1. Pt will tolerate PROM to WFL for B 2nd and 3rd digit for improved functional movement. 2. Pt will report pain at no more than 3/10 during tx. 3. Pt will increase B insurance adjustor strength by 5# avg. 4. Pt will be I with initial HEP. Driller Portable Goals [facility] Goals 1. Pt will increase CLARKE of B 2nd and 3rd digits to 195 or better (195 is consindered good by [place] [employer]) 2. Pt will increase B insurance adjustor strength avg by 10 # avg for improved function. 3. Pt will be able to complete 9 HPT within age related norms, to demonstrate improved FMC and dexterity. 4. Pt will be I with advanced HEP. Assessment/Plan Assessment Patient Response Good Rehabilitation Potential Good Impairments Identified ADLs,Body Mechanics, Coordination/Dexterity, Flexibility,Functional Activities,Motor Function,Pain ,Weakness,Range of Motion, Meaningful Activities, Stiffness,Swelling,Soft Tissue Mobility Treatment Assessment Pt is a 64 yo F referred by primary care due to injury to B hands/wrists, trigger finger B, severe impaired function, and loss of insurance adjustor strength. Pt? s initial injury happened approximately in Jul, where she reports she fell approximately 40 feet down two terraces with hands out stretched. She attempted to do her own therapy, but in November she reached out to her PCP for additional care. Pt was able to follow up with in January and was given an order to begin skilled OT services as well as a referral for a hand surgeon. Pt has no signifcant Pmhx information . Pt believes she jammed her fingers when sliding in her fall. Pt reports that she is ambidextrous, using her R hand for 75% or tasks and L for 25 % of tasks. Pt reports her pain is task specific and that she is functionally very limited in using 1-3 digits B. She is currently unable to lift weights since she cannot insurance adjustor them, is unable to wear her rings (pt reports her knuckles have become larger since injury), is unable to type on keyboard, is unable to use jump rope, is unable to write, is unable to open jars, is unable to hand sew, has pain when playing basketball with grandchildren, is unable to button shirt, has great difficulty in flossing her teeth, is unable to count money at [employer], and is unable to wash heavier dishes. At this time pts spouse is doing more of the cooking than usual . Pt has been able to modify some tasks, but reports significant functional impact from injury to B hands. Using the Pain Assessment, Faces/Hands pt reports pain in L 2nd and 3rd digits and R 2nd and 3rd digits as well as thenar eminence at 3-4/10 with use and 2/10 during sleep. Pt reports she has a high pain tolerance. See objective section for perceived function using the QuickDash and specific ROM and strength measurements. Functionally, pt has significant limitations in active ROM, passively, OT is unable to get pt to WFL during eval. BADLs require 20# of insurance adjustor strength, pt meets this requirement, but likely has decreased insurance adjustor from her personal baseline as pt has difficulty grasping the dynamometer. Pt presents with significant impairments in functional use of B hands, increased pain, muscle weakness, and decreased FMC and dexterity. Skilled OT services are appropriate to address pts deficits and to promote return towards PLOF. Home Exercise Program PROM PIP and DIP flexion, retrograde massage B hands Reviewed with Patient Goals,Home Exercise Program Patient Understanding Excellent Plan Length of treatment (weeks) 5 Plan of Care Start Date 02/21/25 Plan of Care End Date 03/28/25 Treatment Frequency Twice a Week Treatment Duration 45 Minutes Therapeutic Contents Active Range of Motion,Client Education,Functional Activities,Home Exercise Program,Joint Protection, Manual Therapy,Education, Neuromuscular Re-Education, Self-Care,Stretching/ Flexibility Activities, Therapeutic Activities, Therapeutic Exercises, Modalities Modalities As Needed Types of Modalities Cyrotherapy Additional Types of Modalities PB, MHP Patient Instruction Home Exercise Program,Plan of Care,Questions/Concerns Functional Wrist/Hand Scan Hand Side Sensory Assessment Sensory Profile2 Electronically Signed by: Mayda Suazo OT 02/21/25 0147 If you are in agreement with this Plan of Care, please return a signed and dated copy. I have reviewed this Plan of Care and certify that the skilled therapy services above are required to meet the patient?s needs. Physician Signature Date Printed Name and Credentials Clinical Instructor Signature Printed Name and Credentials
--- NOTE | 2025-02-21 14:28 | OT.OPPOC ---
Physical, Occupational & Speech Therapy At [facility] Umu Armas [id number] 1960 Visit Care Team Role Provider Type Raine Silveira MD Attending Provider Physician Family Provider Primary Care Provider Referring Provider Address: [facility] [place], [address] Fax: Occupational Therapy Plan of Care OT Outpatient Adult Evaluation Start: 02/21/25 09:46 Freq: Status: Active Protocol: Document 02/21/25 09:46 ANALIILZ (Rec: 02/21/25 14:23 ANALIJENNIFERRUBA [id number]) General Information - Adult Visit Information Visit Number 12/03 Plan of Care Dates 02/21/25 - 03/28/25 Insurance Information [facility] Choice (Commercial), $2500 deductible, max 60 PT/OT/ST combined Session Time Visit Start Date 02/21/25 Visit Start Time 09:45 Visit Stop Time 10:30 Setting Treatment Setting Outpatient Care Visit Type Note Type Initial Evaluation Referral Referring Physician Raine Silveira MD Reason for Referral B trigger finger, ganglion cyst, arthritis, impaired function, injury hand Identification Identification Confirmed Yes Identification Confirmed By name, EMR Patient Questionnaires Quick Dash- Upper Extremity Quick Dash UE Score 34.1 Quick Dash UE Impairment 20 to 39% Impaired (Score 20- 39) Quick Dash- Work and Sports Modules Quick Dash W&S Score S 50 Quick Dash Work and Sport Impairment 40 to 59% Impaired (Score 40- 59) OT Pain Assessment Pain When Pain Assessed During Exercise Pain Present Pain Present Pain Reported Location Bilateral Hand Intensity 4 Scale Used Numeric (0 - 10) Pain Behaviors Calling Out,Wincing Goals Objective Measurements Objective Measurements Kapandji Opposition R 9/10, L 10/10 Kapandji Retroposition R 2/4, L 3.5/4 AROM R hand: 1st: CMC RA 52, CMC PA 55; MP +10 to 43; IP +20 to 70 2nd: MP +12 to 90; PIP +10 to 38; DIP 0 to 52 3rd: MP +10 to 82; PIP 0 to 20 ; DIP -10 to 62 AROM L hand: 1st: CMC RA 50, CMC PA 60; MP +12 to 40; IP +30 to 79 2nd: MP -10 to 84; PIP +10 to 72; DIP -4 to 22 3rd: MP -10 to 82; PIP +2 to 12; DIP +2 to 40 Forest Science Professor (c p!): R 22, 25, 15 (avg 20.7#); L 20, 20, 20 (avg 20# ) Pinch: lateral R 11#, L 11#; pincer R 4#, L 5#; 3 jaw R 9#, L 7# Treatment Treatment retrograde massage education. PROM PIP and DIP education for HEP. Short Term Goals Short Term Goals 1. Pt will tolerate PROM to WFL for B 2nd and 3rd digit for improved functional movement. 2. Pt will report pain at no more than 3/10 during tx. 3. Pt will increase B aircraft maintenance instructor strength by 5# avg. 4. Pt will be I with initial HEP. Perforator Typist Goals [facility] Goals 1. Pt will increase CLARKE of B 2nd and 3rd digits to 195 or better (195 is consindered good by [place] [employer]) 2. Pt will increase B aircraft maintenance instructor strength avg by 10 # avg for improved function. 3. Pt will be able to complete 9 HPT within age related norms, to demonstrate improved FMC and dexterity. 4. Pt will be I with advanced HEP. Assessment/Plan Assessment Patient Response Good Rehabilitation Potential Good Impairments Identified ADLs,Body Mechanics, Coordination/Dexterity, Flexibility,Functional Activities,Motor Function,Pain ,Weakness,Range of Motion, Meaningful Activities, Stiffness,Swelling,Soft Tissue Mobility Treatment Assessment Pt is a 64 yo F referred by primary care due to injury to B hands/wrists, trigger finger B, severe impaired function, and loss of aircraft maintenance instructor strength. Pt? s initial injury happened approximately in Jul, where she reports she fell approximately 40 feet down two terraces with hands out stretched. She attempted to do her own therapy, but in November she reached out to her PCP for additional care. Pt was able to follow up with in January and was given an order to begin skilled OT services as well as a referral for a hand surgeon. Pt has no signifcant Pmhx information . Pt believes she jammed her fingers when sliding in her fall. Pt reports that she is ambidextrous, using her R hand for 75% or tasks and L for 25 % of tasks. Pt reports her pain is task specific and that she is functionally very limited in using 1-3 digits B. She is currently unable to lift weights since she cannot aircraft maintenance instructor them, is unable to wear her rings (pt reports her knuckles have become larger since injury), is unable to type on keyboard, is unable to use jump rope, is unable to write, is unable to open jars, is unable to hand sew, has pain when playing basketball with grandchildren, is unable to button shirt, has great difficulty in flossing her teeth, is unable to count money at [employer], and is unable to wash heavier dishes. At this time pts spouse is doing more of the cooking than usual . Pt has been able to modify some tasks, but reports significant functional impact from injury to B hands. Using the Pain Assessment, Faces/Hands pt reports pain in L 2nd and 3rd digits and R 2nd and 3rd digits as well as thenar eminence at 3-4/10 with use and 2/10 during sleep. Pt reports she has a high pain tolerance. See objective section for perceived function using the QuickDash and specific ROM and strength measurements. Functionally, pt has significant limitations in active ROM, passively, OT is unable to get pt to WFL during eval. BADLs require 20# of aircraft maintenance instructor strength, pt meets this requirement, but likely has decreased aircraft maintenance instructor from her personal baseline as pt has difficulty grasping the dynamometer. Pt presents with significant impairments in functional use of B hands, increased pain, muscle weakness, and decreased FMC and dexterity. Skilled OT services are appropriate to address pts deficits and to promote return towards PLOF. Home Exercise Program PROM PIP and DIP flexion, retrograde massage B hands Reviewed with Patient Goals,Home Exercise Program Patient Understanding Excellent Plan Length of treatment (weeks) 5 Plan of Care Start Date 02/21/25 Plan of Care End Date 03/28/25 Treatment Frequency Twice a Week Treatment Duration 45 Minutes Therapeutic Contents Active Range of Motion,Client Education,Functional Activities,Home Exercise Program,Joint Protection, Manual Therapy,Education, Neuromuscular Re-Education, Self-Care,Stretching/ Flexibility Activities, Therapeutic Activities, Therapeutic Exercises, Modalities Modalities As Needed Types of Modalities Cyrotherapy Additional Types of Modalities PB, MHP Patient Instruction Home Exercise Program,Plan of Care,Questions/Concerns Functional Wrist/Hand Scan Hand Side Sensory Assessment Sensory Profile2 Electronically Signed by: Mayda Suazo OT 02/21/25 [id number] If you are in agreement with this Plan of Care, please return a signed and dated copy. I have reviewed this Plan of Care and certify that the skilled therapy services above are required to meet the patient?s needs. Physician Signature Date Printed Name and Credentials Clinical Instructor Signature Printed Name and Credentials
--- NOTE | 2025-03-07 13:24 | OT.OP.TRT ---
Visit Care Team Role Provider Type Raine Silveira MD Attending Provider Physician Family Provider Primary Care Provider Referring Provider Specialty: Family Practice MICROSOFT BI CONSULTANT Address: [facility], [place], [address] Fax: Email: [email or web address] Occupational Therapy Treatment Note OT Outpatient Treatment Note - Adult Start: 02/21/25 09:46 Freq: Status: Active Protocol: Document 03/07/25 11:31 CUCA (Rec: 03/07/25 12:44 CUCA [id number]) OT Outpatient Adult Treatment Note Session Time Visit Start Date 03/07/25 Visit Start Time 11:30 Visit Stop Time 12:15 Visit Information Visit Number 01/03 Plan of Care Dates 02/21/25 - 03/28/25 Insurance Information [facility] Choice (commercial), $2500 deductible, max 60 PT/OT/ST combined Setting Treatment Setting Outpatient Care Visit Type Note Type Treatment Note - Subjective Identification Type Name Identification Reconciled With Medical Record Observations I tried some of her HEP, but reports that she had misplaced them and did not do them as much as she had intended. Pt expresses amazement with how much she can move her fingers following todays tx. Pt reports some pain, but doesn't rate it, she grimaces at times, but says she can tolerate it. Loss of Function Moderate Degree Effect on Activity Moderate Degree Effect on Daily Life Moderate Degree - Objective Short Term Goals 1. Pt will tolerate PROM to WFL for B 2nd and 3rd digit for improved functional movement. 2. Pt will report pain at no more than 3/10 during tx. 3. Pt will increase B financial examiner strength by 5# avg. 4. Pt will be I with initial HEP. Production Gear Cutter Goals 1. Pt will increase CLARKE of B 2nd and 3rd digits to 195 or better (195 is considered good by [place] [employer]) 2. Pt will increase B financial examiner strength avg by 10 # avg for improved function. 3. Pt will be able to complete 9 HPT within age related norms, to demonstrate improved FMC and dexterity. 4. Pt will be I with advanced HEP. - Treatment 1 Descriptor butterfly retroposition mobilization on R x 3 min Exercises 2 Descriptor tendon glides x 10 B (with min tc for correct positioning) 1 Descriptor Pt demonstrates PROM HEP Manual Therapy Manual Therapy PROM to B 2nd and 3rd digits MP/PIP/DIP prn into flexion followed by composite flexion. Pt tolerates joint mobilization grade II and III to R 2nd and 3rd PIP and L 2nd and 3rd PIP/DIP. - Assessment Patient Response to Treatment Good Rehabilitation Potential Good Impairments Identified ADLs,Body Mechanics, Coordination/Dexterity, Flexibility,Functional Activities,Motor Function,Pain ,Weakness,Range of Motion, Meaningful Activities, Stiffness,Swelling,Soft Tissue Mobility Assessment of Improvement Pt is pleasant and cooperative . Following PROM, pt reports that she has a better understanding of how to perform her HEP. She states that she was being too gentle during her PROM. Pt tolerated PROM to B hands well today, making progress toward STG #1. Pt needed min tc initially to perform tendon gliding exercises correctly, especially for hook and flat fist positions. Pt needs less tc with successive attempts. OT added tendon glides to HEP exercises. OT will continue to assess pts I with these. Pt continues to be appropriate for skilled OT services. Cont per established POC. Reviewed with Patient/Caregiver Goals,Home Exercise Program Patient/Caregiver Understanding Excellent - Plan Therapy Recommendations Continue with Current Program Amount of Therapy Recommended 1-2 Months Frequency of Treatment Twice a Week Length of Session 45 Minutes Therapeutic Contents Active Range of Motion,Client Education,Functional Activities,Home Exercise Program,Joint Protection, Manual Therapy,Education, Neuromuscular Re-Education, Self-Care,Stretching/ Flexibility Activities, Therapeutic Activities, Therapeutic Exercises, Modalities Modalities As Needed Additional Types of Modalities MHP, PB
--- NOTE | 2025-03-09 10:53 | OT.OP.TRT ---
Visit Care Team Role Provider Type Raine Silveira MD Attending Provider Physician Family Provider Primary Care Provider Referring Provider Specialty: Family Practice GRANULATING BLENDER Address: [facility] [address], [place], [address] Fax: Email: [email or web address] Occupational Therapy Treatment Note OT Outpatient Treatment Note - Adult Start: 02/21/25 09:46 Freq: Status: Active Protocol: Document 03/09/25 09:04 CUCA (Rec: 03/09/25 09:05 [email or web address] [id number]) OT Outpatient Adult Treatment Note Session Time Visit Start Date 03/09/25 Visit Start Time 09:04 Visit Stop Time 09:45 Visit Information Visit Number 01/31 Plan of Care Dates 02/21/25 - 03/28/25 Insurance Information [facility] Choice (commercial), $2500 deductible, max 60 PT/OT/ST combined Setting Treatment Setting Outpatient Care Visit Type Note Type Treatment Note - Subjective Identification Type Name Identification Reconciled With Medical Record Observations Pt reports that her middle joint on middle fingers feel bruised with the L>R. Pt asks if she should do her stretches more than once a day. OT continues to recommend once a day until she has less soreness following them. Loss of Function Moderate Degree Effect on Activity Moderate Degree Effect on Daily Life Moderate Degree - Objective Short Term Goals 1. Pt will tolerate PROM to WFL for B 2nd and 3rd digit for improved functional movement. 2. Pt will report pain at no more than 3/10 during tx. 3. Pt will increase B machine preservative filler strength by 5# avg. 4. Pt will be I with initial HEP. Plastics Fabricator Goals 1. Pt will increase CLARKE of B 2nd and 3rd digits to 195 or better (195 is consindered good by [place] [employer]) 2. Pt will increase B machine preservative filler strength avg by 10 # avg for improved function. 3. Pt will be able to complete 9 HPT within age related norms, to demonstrate improved FMC and dexterity. 4. Pt will be I with advanced HEP. - Treatment 1 Descriptor butterfly retroposition mobiliztion on R x 3 min Exercises 3 Descriptor Digit blocking: PIP and DIP for B 2nd and 3rd digits with extended holds in flexed position as tolerated x10 each 1 Descriptor Pt asked additional questions for performing her PROM HEP. Min vcs needed. Manual Therapy Manual Therapy PROM to B 2nd and 3rd digits MP/PIP/DIP prn into flexion followed by composite flexion. Pt tolerates joint mobilization grade II and III to R 2nd and 3rd PIP and L 2nd and 3rd PIP/DIP. - Assessment Patient Response to Treatment Good Rehabilitation Potential Good Impairments Identified ADLs,Body Mechanics, Coordination/Dexterity, Flexibility,Functional Activities,Motor Function,Pain ,Weakness,Range of Motion, Meaningful Activities, Stiffness,Swelling,Soft Tissue Mobility Assessment of Improvement Pt is pleasant and cooperative and eager to improve. Pt had additional questions for performing PROM, OT assisted pt in trying new positioning for improved I with her HEP. Pt verbalized improved understanding following this. Pt reports she may get her spouse to assist her in the future. Pt tolerated PROM to B hands well today, making progress toward STG #1. Pt tolerates digit blocking exercise well OT will likely add this to pts HEP after next tx. OT wants pt to focus on PROM and tendon glides at this time. Pt continues to be appropriate for skilled OT services. Cont per established POC. Reviewed with Patient/Caregiver Goals,Home Exercise Program Patient/Caregiver Understanding Excellent - Plan Therapy Recommendations Continue with Current Program Amount of Therapy Recommended 1-2 Months Frequency of Treatment Twice a Week Length of Session 45 Minutes Therapeutic Contents Active Range of Motion,Client Education,Functional Activities,Home Exercise Program,Joint Protection, Manual Therapy,Education, Neuromuscular Re-Education, Self-Care,Stretching/ Flexibility Activities, Therapeutic Activities, Therapeutic Exercises, Modalities Modalities As Needed Additional Types of Modalities MHP, PB
--- NOTE | 2025-03-16 13:23 | OT.OP.TRT ---
Visit Care Team Role Provider Type Raine Silveira MD Attending Provider Physician Family Provider Primary Care Provider Referring Provider Specialty: Family Practice BELLMAN Address: [facility], [place], [address] Fax: Email: [email or web address] Occupational Therapy Treatment Note OT Outpatient Treatment Note - Adult Start: 02/21/25 09:46 Freq: Status: Active Protocol: Document 03/16/25 11:30 ANALILIZ (Rec: 03/16/25 11:31 [email or web address] [id number]) OT Outpatient Adult Treatment Note Session Time Visit Start Date 03/16/25 Visit Start Time 11:30 Visit Stop Time 12:20 Visit Information Visit Number 03/03 Plan of Care Dates 02/21/25 - 03/28/25 Insurance Information [facility] Choice (commercial), $2500 deductible, max 60 PT/OT/ST combined Setting Treatment Setting Outpatient Care Visit Type Note Type Treatment Note - Subjective Identification Type Name Identification Reconciled With Medical Record Observations Pt reports that she stopped doing her tendon glides because she is unable to do the hook position. Pt said she has noticed that she is curling her fingers around tools without thinking about it, for example when she was raking in the yard. Pt says her tried to help her with PROM, but that it was more difficult for both of them, so she is doing it on her own instead. Chief Complaint(s) Loss of Motion/Stiffness,Pain Effect on Activity,Restricts Loss of Function Moderate Degree Effect on Activity Moderate Degree Effect on Daily Life Moderate Degree - Objective Short Term Goals 1. Pt will tolerate PROM to WFL for B 2nd and 3rd digit for improved functional movement. 2. Pt will report pain at no more than 3/10 during tx. 3. Pt will increase B research biologist strength by 5# avg. 4. Pt will be I with initial HEP. Magnaflux Operator Goals 1. Pt will increase CLARKE of B 2nd and 3rd digits to 195 or better (195 is consindered good by [place] [employer]) 2. Pt will increase B research biologist strength avg by 10 # avg for improved function. 3. Pt will be able to complete 9 HPT within age related norms, to demonstrate improved FMC and dexterity. 4. Pt will be I with advanced HEP. - Treatment 1 Descriptor butterfly retroposition mobiliztion on R x Exercises 3 Descriptor AROM/Coordination: Digit blocking: PIP and DIP for B 2nd and 3rd digits with extended holds in flexed position as tolerated x10 each towel gather and push away B x 10 reps hook/claw curl around highlighter (in supination) x 10 B 2 Descriptor tendon glides x 1 Descriptor HEP: OT recommends pt continue to attempt tendon glides even though she is having difficulty performing them. Pt issued new HEP that includes digit blocking for PIP and DIP, composite flexion PROM, hook/claw stretch, towel gathers, and inhand manipulation with pen. Pen manipulation is too difficult at this time, OT instructed pt to hold off on this exercise. Manual Therapy Manual Therapy PROM to B 2nd and 3rd digits MP/PIP/DIP prn into flexion followed by composite flexion. Pt tolerates joint mobilization grade II and III to R 2nd and 3rd PIP and L 2nd and 3rd PIP/DIP. - Assessment Patient Response to Treatment Good Rehabilitation Potential Good Impairments Identified ADLs,Body Mechanics, Coordination/Dexterity, Flexibility,Functional Activities,Motor Function,Pain ,Weakness,Range of Motion, Meaningful Activities, Stiffness,Swelling,Soft Tissue Mobility Assessment of Improvement Pt continues to be pleasant and cooperative and eager to improve. Pt reports that she is performing her PROM exercises but has stopped the tendon glides because she is unable to get into the hook position. OT recommends that pt continue to attempt to perform them, even without full ROM. OT added additional exercises to HEP (listed above) pt verbalizes understanding and demonstrates them with min vc. OT to continue to assess pt's I with these. Pt demonstrated fair finger isolation with towel gather today. Pt attempted highlighter in hand manipulation, but this was a bit to difficult. OT will look to add it back in when pt is more able. Pt responds very well to manual therapy, having improved AROM especially after mobilization. Pt would benefit from continued skilled OT services per established POC. Reviewed with Patient/Caregiver Goals,Home Exercise Program Patient/Caregiver Understanding Excellent - Plan Therapy Recommendations Continue with Current Program Amount of Therapy Recommended 1-2 Months Frequency of Treatment Twice a Week Length of Session 45 Minutes Therapeutic Contents Active Range of Motion,Client Education,Functional Activities,Home Exercise Program,Joint Protection, Manual Therapy,Education, Neuromuscular Re-Education, Self-Care,Stretching/ Flexibility Activities, Therapeutic Activities, Therapeutic Exercises, Modalities Modalities As Needed Additional Types of Modalities MHP, PB
--- NOTE | 2025-03-21 10:36 | OT.OP.TRT ---
Visit Care Team Role Provider Type Raine Silveira MD Attending Provider Physician Family Provider Primary Care Provider Referring Provider Specialty: Family Practice STOCK HOLDER Address: [address] [place], [place] [id number] [place], [address] Fax: Email: [email or web address] Occupational Therapy Treatment Note OT Outpatient Treatment Note - Adult Start: 02/21/25 09:46 Freq: Status: Active Protocol: Document 03/21/25 07:26 ANALILIZ (Rec: 03/21/25 07:27 [email or web address] [id number]) OT Outpatient Adult Treatment Note Session Time Visit Start Date 03/21/25 Visit Start Time 07:30 Visit Stop Time 08:40 Visit Information Visit Number 04/02 Plan of Care Dates 02/21/25 - 03/28/25 Insurance Information [facility] Choice (commercial), $2500 deductible, max 60 PT/OT/ST combined Setting Treatment Setting Outpatient Care Visit Type Note Type Treatment Note - Subjective Identification Type Name Identification Reconciled With Medical Record Observations Pt reports that she rode in a group bike ride this weekend for 2.5 hours. She said her hands were very sore and achey following. Pt reports at wore during PROM her p! sas 5- 6/10, pt reports no p! otherwise. Chief Complaint(s) Loss of Motion/Stiffness,Pain Effect on Activity,Restricts Loss of Function Moderate Degree Effect on Activity Moderate Degree Effect on Daily Life Moderate Degree - Objective Objective Measurements Kapandji Opposition R 9.5/10, L 10/10 Kapandji Retroposition R 2.5/4 , L 3.5/4 AROM R hand: 1st: CMC RA 52, CMC PA 55; MP +10 to 48; IP +20 to 70 2nd: MP +12 to 102; PIP +10 to 80; DIP 0 to 66 (CLARKE 268) 3rd: MP +10 to 90; PIP 0 to 60 ; DIP 0 to 76 (CLARKE 236) AROM L hand: 1st: CMC RA 60, CMC PA 60; MP +12 to 52; IP +30 to 79 2nd: MP 0 to 98; PIP +10 to 92 ; DIP -2 to 32 (CLARKE 230) 3rd: MP +5 to 100; PIP +2 to 60; DIP 0 to 56 (CLARKE 223) Curing Machine Operator (c p!): R 32, 36, 41 (avg 36.3#); L 30, 40, 40 (avg 36. 7#) Pinch: lateral R 11#, L 10#; pincer R 8.5#, L 6#; 3 jaw R 10#, L 9# Short Term Goals 1. Pt will tolerate PROM to WFL for B 2nd and 3rd digit for improved functional movement. MET 2. Pt will report pain at no more than 3/10 during tx. 3. Pt will increase B dialysis chief equipment technician strength by 5# avg. MET 4. Pt will be I with initial HEP. MET Media Producer Goals 1. Pt will increase CLARKE of B 2nd and 3rd digits to 195 or better (195 is consindered good by [place] [employer]) MET 2. Pt will increase B dialysis chief equipment technician strength avg by 10 # avg for improved function. MET 3. Pt will be able to complete 9 HPT within age related norms, to demonstrate improved FMC and dexterity. 4. Pt will be I with advanced HEP. - Treatment 1 Descriptor butterfly retroposition mobiliztion on R x Exercises 3 Descriptor AROM/Coordination: Digit blocking: PIP and DIP for B 2nd and 3rd digits with extended holds in flexed position as tolerated x10 each towel gather and push away B x hook/claw curl around highlighter (in supination) x 10 B 2 Descriptor tendon glides x 5 1 Descriptor HEP: OT discussed compression gloves for swelling mgmt. OT recommends them especially at the end of the day if her hands feel sore, swollen, throbbing and during tasks where her hands are dependent. Pt had questions about digit blocking HEP exercises, OT reviewed these with pt. Manual Therapy Manual Therapy PROM to B 2nd and 3rd digits MP/PIP/DIP prn into flexion followed by composite flexion. Pt tolerates joint mobilization grade II and III to R 2nd and 3rd PIP and L 2nd and 3rd PIP/DIP. - Assessment Patient Response to Treatment Excellent Rehabilitation Potential Excellent Impairments Identified ADLs,Body Mechanics, Coordination/Dexterity, Flexibility,Functional Activities,Motor Function,Pain ,Weakness,Range of Motion, Meaningful Activities, Stiffness,Swelling,Soft Tissue Mobility Progress Towards Goals Excellent Progress Assessment of Overall Progress Improving Assessment of Improvement Pt is pleasant, cooperative, and eager to use her hands as normally as possible. She reports that she will be seeing an orthopedic surgeon today. She has an upcoming birthday and will be switching to Medicare insurance, she will also be switching providers at that time. Pt has made excellent progress in the 5 visits she?s had with skilled OT, and would benefit from continued services; however, due to the change with insurance and provider pt has to be d/c from services until her new provider sends a referral and insurance authorization is obtained. Pt is I with her HEP after OT clarification on digit blocking exercises. Pt has made significant progress with ROM and dialysis chief equipment technician, see objective section for details. D/C to HEP at this time. Reviewed with Patient/Caregiver Goals,Home Exercise Program Patient/Caregiver Understanding Excellent - Plan Therapy Recommendations Discharge to Home Exercise Program,Discharge from Occupational Therapy
--- NOTE | 2025-03-21 10:37 | OT.OP.DC ---
Visit Care Team Role Provider Type Raine Silveira MD Attending Provider Physician Family Provider Primary Care Provider Referring Provider Address: [facility] [address], [place], [address] Fax: Email: [email or web address] Outpatient OT Outpatient Adult Evaluation Start: 02/21/25 09:46 Freq: Status: Active Protocol: Document 02/21/25 09:46 CUCA (Rec: 02/21/25 14:23 CUCA [id number]) General Information - Adult Visit Information Visit Number 12/[id number] Plan of Care Dates 02/21/25 - 03/28/25 Insurance Information [facility] Choice (Commercial), $2500 deductible, max 60 PT/OT/ST combined Session Time Visit Start Date 02/21/25 Visit Start Time 09:45 Visit Stop Time 10:30 Setting Treatment Setting Outpatient Care Visit Type Note Type Initial Evaluation Referral Referring Physician Raine Silveira MD Reason for Referral B trigger finger, ganglion cyst, arthritis, impaired function, injury hand Identification Identification Confirmed Yes Identification Confirmed By name, EMR Patient Questionnaires Quick Dash- Upper Extremity Quick Dash UE Score 34.1 Quick Dash UE Impairment 20 to 39% Impaired (Score 20- 39) Quick Dash- Work and Sports Modules Quick Dash W&S Score S 50 Quick Dash Work and Sport Impairment 40 to 59% Impaired (Score 40- 59) OT Pain Assessment Pain When Pain Assessed During Exercise Pain Present Pain Present Pain Reported Location Bilateral Hand Intensity 4 Scale Used Numeric (0 - 10) Pain Behaviors Calling Out,Wincing Goals Objective Measurements Objective Measurements Kapandji Opposition R 9/10, L 10/10 Kapandji Retroposition R 2/4, L 3.5/4 AROM R hand: 1st: CMC RA 52, CMC PA 55; MP +10 to 43; IP +20 to 70 2nd: MP +12 to 90; PIP +10 to 38; DIP 0 to 52 3rd: MP +10 to 82; PIP 0 to 20 ; DIP -10 to 62 AROM L hand: 1st: CMC RA 50, CMC PA 60; MP +12 to 40; IP +30 to 79 2nd: MP -10 to 84; PIP +10 to 72; DIP -4 to 22 3rd: MP -10 to 82; PIP +2 to 12; DIP +2 to 40 Commercial Housekeeper (c p!): R 22, 25, 15 (avg 20.7#); L 20, 20, 20 (avg 20# ) Pinch: lateral R 11#, L 11#; pincer R 4#, L 5#; 3 jaw R 9#, L 7# Treatment Treatment retrograde massage education. PROM PIP and DIP education for HEP. Short Term Goals Short Term Goals 1. Pt will tolerate PROM to WFL for B 2nd and 3rd digit for improved functional movement. 2. Pt will report pain at no more than 3/10 during tx. 3. Pt will increase B shoulder puncher strength by 5# avg. 4. Pt will be I with initial HEP. Supervisor Telephone Clerks Goals Long-Term Goals 1. Pt will increase CLARKE of B 2nd and 3rd digits to 195 or better (195 is consindered good by [employer]) 2. Pt will increase B shoulder puncher strength avg by 10 # avg for improved function. 3. Pt will be able to complete 9 HPT within age related norms, to demonstrate improved FMC and dexterity. 4. Pt will be I with advanced HEP. Assessment/Plan Assessment Patient Response Good Rehabilitation Potential Good Impairments Identified ADLs,Body Mechanics, Coordination/Dexterity, Flexibility,Functional Activities,Motor Function,Pain ,Weakness,Range of Motion, Meaningful Activities, Stiffness,Swelling,Soft Tissue Mobility Treatment Assessment Pt is a 64 yo F referred by primary care due to injury to B hands/wrists, trigger finger B, severe impaired function, and loss of shoulder puncher strength. Pt? s initial injury happened approximately in Jul, where she reports she fell approximately 40 feet down two terraces with hands out stretched. She attempted to do her own therapy, but in November she reached out to her PCP for additional care. Pt was able to follow up with in January and was given an order to begin skilled OT services as well as a referral for a hand surgeon. Pt has no signifcant Pmhx information . Pt believes she jammed her fingers when sliding in her fall. Pt reports that she is ambidextrous, using her R hand for 75% or tasks and L for 25 % of tasks. Pt reports her pain is task specific and that she is functionally very limited in using 1-3 digits B. She is currently unable to lift weights since she cannot shoulder puncher them, is unable to wear her rings (pt reports her knuckles have become larger since injury), is unable to type on keyboard, is unable to use jump rope, is unable to write, is unable to open jars, is unable to hand sew, has pain when playing basketball with grandchildren, is unable to button shirt, has great difficulty in flossing her teeth, is unable to count money at voodoo, and is unable to wash heavier dishes. At this time pts spouse is doing more of the cooking than usual . Pt has been able to modify some tasks, but reports significant functional impact from injury to B hands. Using the Pain Assessment, Faces/Hands pt reports pain in L 2nd and 3rd digits and R 2nd and 3rd digits as well as thenar eminence at 3-4/10 with use and 2/10 during sleep. Pt reports she has a high pain tolerance. See objective section for perceived function using the QuickDash and specific ROM and strength measurements. Functionally, pt has significant limitations in active ROM, passively, OT is unable to get pt to L during eval. BADLs require 20# of shoulder puncher strength, pt meets this requirement, but likely has decreased shoulder puncher from her personal baseline as pt has difficulty grasping the dynamometer. Pt presents with significant impairments in functional use of B hands, increased pain, muscle weakness, and decreased FMC and dexterity. Skilled OT services are appropriate to address pts deficits and to promote return towards PLOF. Home Exercise Program PROM PIP and DIP flexion, retrograde massage B hands Reviewed with Patient Goals,Home Exercise Program Patient Understanding Excellent Plan Length of treatment (weeks) 5 Plan of Care Start Date 02/21/25 Plan of Care End Date 03/28/25 Treatment Frequency Twice a Week Treatment Duration 45 Minutes Therapeutic Contents Active Range of Motion,Client Education,Functional Activities,Home Exercise Program,Joint Protection, Manual Therapy,Education, Neuromuscular Re-Education, Self-Care,Stretching/ Flexibility Activities, Therapeutic Activities, Therapeutic Exercises, Modalities Modalities As Needed Types of Modalities Cyrotherapy Additional Types of Modalities PB, MHP Patient Instruction Home Exercise Program,Plan of Care,Questions/Concerns Functional Wrist/Hand Scan Hand Side Sensory Assessment Sensory Profile2 OT Outpatient Discharge Note - Adult Start: 02/21/25 09:46 Freq: Status: Active Protocol: Document 03/21/25 07:26 CUCA (Rec: 03/21/25 07:27 CUCA [id number] OT Outpatient Adult Discharge Note Session Time Visit Start Date 03/21/25 Visit Start Time 07:30 Visit Stop Time 08:40 Visit Information Visit Number 04/[id number] Plan of Care Dates 02/21/25 - 03/28/25 Insurance Information [facility] Choice (commercial), $2500 deductible, max 60 PT/OT/ST combined Setting Treatment Setting Outpatient Care Visit Type Note Type Discharge Note - Subjective Identification Type Name Identification Reconciled With Medical Record Observations Pt reports that she rode in a group bike ride this weekend for 2.5 hours. She said her hands were very sore and achey following. Pt reports at wore during PROM her p! sas 5- 05/03, pt reports no p! otherwise. Chief Complaint(s) Loss of Motion/Stiffness,Pain Effect on Activity,Restricts Loss of Function Moderate Degree Effect on Activity Moderate Degree Effect on Daily Life Moderate Degree - Objective Objective Measurements Kapandji Opposition R 9.5/10, L 10/10 Kapandji Retroposition R 2.5/4 , L 3.5/4 AROM R hand: 1st: CMC RA 52, CMC PA 55; MP +10 to 48; IP +20 to 70 2nd: MP +12 to 102; PIP +10 to 80; DIP 0 to 66 (CLARKE 268) 3rd: MP +10 to 90; PIP 0 to 60 ; DIP 0 to 76 (CLARKE 236) AROM L hand: 1st: CMC RA 60, CMC PA 60; MP +12 to 52; IP +30 to 79 2nd: MP 0 to 98; PIP +10 to 92 ; DIP -2 to 32 (CLARKE 230) 3rd: MP +5 to 100; PIP +2 to 60; DIP 0 to 56 (CLARKE 223) Commercial Housekeeper (c p!): R 32, 36, 41 (avg 36.3#); L 30, 40, 40 (avg 36. 7#) Pinch: lateral R 11#, L 10#; pincer R 8.5#, L 6#; 3 jaw R 10#, L 9# Short Term Goals 1. Pt will tolerate PROM to WFL for B 2nd and 3rd digit for improved functional movement. MET 2. Pt will report pain at no more than 3/10 during tx. 3. Pt will increase B shoulder puncher strength by 5# avg. MET 4. Pt will be I with initial HEP. MET Supervisor Telephone Clerks Goals 1. Pt will increase CLARKE of B 2nd and 3rd digits to 195 or better (195 is consindered good by [employer]) MET 2. Pt will increase B shoulder puncher strength avg by 10 # avg for improved function. MET 3. Pt will be able to complete 9 HPT within age related norms, to demonstrate improved FMC and dexterity. 4. Pt will be I with advanced HEP. - - Assessment Patient Response to Treatment Excellent Rehabilitation Potential Excellent Impairments Identified ADLs,Body Mechanics, Coordination/Dexterity, Flexibility,Functional Activities,Motor Function,Pain ,Weakness,Range of Motion, Meaningful Activities, Stiffness,Swelling,Soft Tissue Mobility Progress Towards Goals Excellent Progress Assessment of Overall Progress Improving Assessment of Improvement Pt has worked with skilled OT services for eval and 4 visits . During that time pt has been pleasant, cooperative, and motivated to improve the functional use of B hands. Pt has an upcoming birthday and will be switching to Medicare insurance, she will also be switching providers at that time. Pt has made excellent progress in the 5 visits she?s had with skilled OT, and would benefit from continued services; however, due to the change with insurance and provider pt has to be d/c from services until her new provider sends a referral and insurance authorization is obtained. During tx sessions, OT provides manual stretch of digits with joint mobilizations provided to improve end range. Pt has responded well to this and today demonstrated PROM to WFL for both hands. Pt R index finger has a ratcheting type movement when she actively flexes. Pt reports that her joints are larger than they were prior to her injury, pt has some swelling and is performing retrograde massage well for this. OT recommends compression gloves with open digits to further assist with this. OT has made progress with AROM and shoulder puncher/pinch strengths (see objective section for specific measures) . Pt?s total active motion ( CLARKE) for R 2nd digit has improved 66 degrees from eval and 3rd digit has improved 72 since eval. Pt?s CLARKE for L 2nd digit has improved 56 degrees since eval and 3rd digit has improved by 95 degrees. Pt?s R shoulder puncher has increased by 15.6# average and her L by 16.7#. Pt?s R pincer strength has improved by 4.5# and L by 1#. D/C pt to HEP due to insurance change . Pt would benefit from continued skilled OT services for improved AROM, strength, FMC, BADL/IADL, and dexterity when a new order and authorization is obtained. Reviewed with Patient/Caregiver Goals,Home Exercise Program Patient/Caregiver Understanding Excellent - Plan Therapy Recommendations Discharge to Home Exercise Program,Discharge from Occupational Therapy
== END 2025-03-21 14:30 | disposition home or self-care (01) ==
LOC: OT 07:30
PROVIDERS: Family Provider Family Medicine; PCP Family Medicine; Referring Provider Family Medicine; Visit Provider Family Medicine
DX: S69.90XA Unspecified injury of unspecified wrist, hand and finger(s), initial encounter (principal)
CPT/HCPCS: 97110; 97140; 97166; 97530

== ENCOUNTER 2025-04-22 08:52 | Outpatient (RCR) | payer OTHER, SELFPAY ==
--- NOTE | 2025-04-22 10:36 | OT.OP.DC ---
Visit Care Team Role Provider Type ANNIE Grijalva Attending Provider Non-Staff Family Provider Primary Care Provider Referring Provider Address: [facility], [address], [place], [address] Email: OT Outpatient OT Outpatient Adult Evaluation Start: 04/22/25 10:05 Freq: Status: Active Protocol: Document 04/22/25 10:06 AMS (Rec: 04/22/25 10:34 AMS [id number]) General Information - Adult Session Time Visit Start Time 09:00 Visit Stop Time 09:45 Setting Treatment Setting Outpatient Care Visit Type Note Type Discharge Summary Identification Identification Confirmed Yes Assessment/Plan Assessment Treatment Assessment Umu is 65 y.o., L hand dominant. She was referred to outpatient OT d/t bilateral finger stiffness. Medical history is significant for B trigger finger, ganglion cyst, arthritis, bilateral cataracts (w/ surgical correction), lipoma L UE, and L shoulder impingement. Review of MD note indicated that Umu reported losing mobility in bilateral hands d/ t fall in Jul/August of last year 2023; report of experience of pain in knuckles particularly w/ stretching; she was indicated to have had 4 sessions, including evaluation w/ Yeimy Sauer at [facility] who is a hand therapist. [facility] records indicate clinician's name was Mayda Suazo OT. She reported that fall in Jul/Aug was in backyard of her home w/ arms outstretched in front of her, one hand overlapping the other hand, w/ head extended. X- rays of her R arm were taken, as well as of her R ankle. There were no significant findings within x-rays. She has rehabilitated her R ankle w/ good recovery. QuickDASH UE Outcome Measure Score = 25.00. Reviewed home exercise program that was provided by Mayda which includes passive and active ROM exercises of fingers w/ focus on thumb, 2nd and 3rd digits of bilateral hands. She had with her the written and visual instructions of the exercises that she was given which includes access to QR codes. Exercises reviewed included seated finger PIPJ AROM, seated finger DIP AROM, seated finger composite flexion stretch, seated multiple digit intrinsic stretch/hook fist, seated towel gather and push, tendon gliding exercises, and thumb retropulsion stretch to maintain palmar ROM. Mayda rec avoiding UE overhead w/ use of 5# and 8# DB given difficulties w/ line tester. Wrist weights may be a good alternative option. (+) engagement in bike riding; uses road bike. May benefit from cushioned bike gloves. See below for additional recommendations to HEP that was provided. No more treatment sessions are needed at this time. Recommend CHT referral given ulnar rotation at PIPJs and discomfort reported in CMCJs of bilateral thumbs; may benefit from custom made day and/or night splints to discourage further deformities of digits/ discourage ulnar drift of 3rd and 4th digits of the R hand. Umu to discuss w/ PCP referral to CHT; identified [facility] in [place] as one resource. Recommend discussing w/ Dr. Mackenzie or Dr. Hood for additional recommendations for CHT and/or contacting insurance to identify CHTs within network given that this clinician does not provide custom-orthotics. Home Exercise Program 04/22/25: Instructed in passive tendon glide of a flat fist w/ use of contralalateral hand, as well as passive tendon glide of composite flexion/full fist w/ use of contralateral hand w/ hold 20-30 sec vs active tendon glides. Also instructed in alternative use of cushion of chair for passive tendon glides for flat fist and full fist w/ hold 20-30 sec. Rec daily x 1 rep and/or as needed . Also discussed use of heat to promote flexibility prior to engagement in ROM exercises ; discussed options such as mittens, hand warmers, rice microwave pillow/pad, or paraffin bath. Trialed paraffin bath x 5 dips into paraffin wax w/ keeping wax on hands/fingers x 10 min prior to removal. Rec consideration of use for home. Frequency to dependent upon personal response given being seek x 1 session. Plan Patient Recommendations Discharge from Occupational Therapy Other Suggested Referrals Rec referral to CHT for consideration of custom-made finger/hand splints Functional Wrist/Hand Scan Hand Side Sensory Assessment Sensory Profile2
== END 2025-04-26 14:53 | disposition home or self-care (01) ==
LOC: OT 08:52
PROVIDERS: Family Provider Registered Nurse; PCP Registered Nurse; Referring Provider Registered Nurse; Visit Provider Registered Nurse
DX: M25.642 Stiffness of left hand, not elsewhere classified (principal); M25.641 Stiffness of right hand, not elsewhere classified
CPT/HCPCS: 97018; 97165

== ENCOUNTER → 2025-04-28 14:00 | Outpatient (CLI) | payer OTHER, SELFPAY ==
--- NOTE | 2025-04-28 14:01 | DI.MG.S_ITS ---
MM screening mammo BI: 04/28/2025. BI-RADS: 1 CLINICAL: 65-year old female for bilateral screening mammogram. Tyrer-Cuzick lifetime risk of 11.0%. No personal or first-degree family history of breast cancer. Current reported family history of breast cancer: paternal grandmother and paternal aunt. History of ovarian cancer in one first-degree relative. The patient had a prior left breast biopsy. PRIOR EXAMS 04/05/2024, 02/27/2023, 01/15/2022, 11/13/2020. MAMMOGRAPHY TECHNIQUE: 2D and 3D (tomosynthesis) digital mammographic views obtained, with additional images as needed for full coverage. Current study was also evaluated with a Computer Aided Detection (CAD) system. DENSITY C. The breasts are heterogeneously dense, which may obscure small masses. MAMMOGRAPHY FINDINGS Bilateral: No suspicious mass, asymmetry, microcalcification, or other abnormality seen. IMPRESSION: * No evidence of malignancy. RECOMMENDATIONS Bilateral * Annual screening mammography. OVERALL ASSESSMENT CATEGORY BI-RADS-1: Negative. The [employer] recommends annual screening mammography beginning at age 40 for women with average risk of breast cancer. ELECTRONICALLY SIGNED: Fidel Dorsey M.D. on 04/29/2025 at 11:38:19 PM PT Interpreting Station ID: [id number]
--- NOTE | 2025-04-28 14:02 | DI.RAD.S_ITS ---
PROCEDURE: XR DEXA AXIAL SKELETON INDICATIONS: Screenings COMPARISON: [facility], CR, XR DEXA AXIAL SKELETON, 02/27/2023, 15:43. FINDINGS: Lumbar Spine: Bone mineral density 0.820 g/cm2, T score -2.1, osteopenia, change from previous-8.4%. Statistical significance of bone mineral density change cannot be determined due to dissimilar scan types or analysis method.. Left Femoral Neck: Bone mineral density 0.571 g/cm2, T score -2.5, osteoporosis. Left Hip: Bone mineral density is 0.715 g/cm2, T score -1.9, osteopenia, change from previous-2.9%. Statistical significance of bone mineral density change cannot be determined due to dissimilar scan types or analysis method.. Fracture Risk Calculation (when applicable): 10-year fracture risk of a major osteoporotic fracture 21 percent and of a hip fracture 2.6 percent. This FRAX score is not valid because one or more T-scores are below-2.5. (T score greater or equal to -1.0 to: NORMAL) (T score from -1.1 to -2.4: OSTEOPENIA) (T score less than or equal to -2.5: OSTEOPOROSIS) IMPRESSION: Osteoporosis. The patient is at a high risk of fracture. Overall interval decrease in bone mineral density compared to the prior study. Statistical significance of bone mineral density change cannot be determined due to dissimilar scan types or analysis method. Follow-up guidelines as follows: Osteoporosis: Consider a repeat DEXA and Vertebral Fracture Assessment (VFA) exam in 2 years or sooner if medically necessary, to reassess this patient's status. Osteopenia: Consider a repeat DEXA in 2-3 years to reassess this patient's status, or if there is a new clinical indication. Normal: Consider a repeat DEXA in 5 years or sooner, or if there is a new clinical indication. All treatment decisions require clinical judgment and consideration of individual patient factors, including patient preferences, comorbidities, previous drug use, risk factors not captured in the FRAX model (e.g., frailty, falls, vitamin D deficiency, increased bone turnover, interval significant decline in bone density ) and possible under- or over-estimation of fracture risk by FRAX. In addition, the NOF Guide recommends that FDA-approved medical therapies be considered in postmenopausal women and men age >= 50 years with a: * Hip or vertebral (clinical or morphometric) fracture * T-score of <=-2.5 at the spine or hip * Ten-year fracture probability by FRAX of >= 3% for hip fracture or >=20% for major osteoporotic fracture. Dictated by: Radha Duran M.D. on 04/29/2025 at 14:06 Approved by: Radha Duran M.D. on 04/29/2025 at 14:08
== END ==
LOC: RAD 14:01
PROVIDERS: Family Provider Registered Nurse; PCP Registered Nurse; Referring Provider Registered Nurse; Visit Provider Registered Nurse
DX: Z12.31 Encounter for screening mammogram for malignant neoplasm of breast (principal); R92.333 Mammographic heterogeneous density, bilateral breasts; Z80.3 Family history of malignant neoplasm of breast; Z80.41 Family history of malignant neoplasm of ovary; Z13.820 Encounter for screening for osteoporosis; M81.0 Age-related osteoporosis without current pathological fracture; Z78.0 Asymptomatic menopausal state
CPT/HCPCS: 77063; 77067; 77080

== ENCOUNTER 2025-06-22 11:56 | Day surgery (SDC) | payer OTHER, SELFPAY ==
[2025-06-22 11:56] VITALS: BP 120/55; PULSE 89; RESP 16; TEMP 36.6; O2SAT 100
--- NOTE | 2025-06-22 12:00 | P.HP_ITS ---
History of Present Illness History of Present Illness Date Patient Seen: 06/22/25 Chief complaint: Colonoscopy Narrative: Follow-up screening colonoscopy last over 10 years ago [facility] Medical History (Updated 02/11/25 @ 18:00 by Raine Silveira MD) Ganglion cyst Trigger finger Family history of ovarian cancer Osteopenia (~08/2012) Cataracts, bilateral (~06/2010) Frequent UTI Skin cancer, basal cell Surgical History Anesthesia History of arthroscopy of left shoulder (~08/2009) S/P arthroscopic surgery of right knee (~03/1994) History of hysterectomy (~03/2005) Family History Father Congestive heart failure Mother No problems noted. Sister Teratoma of ovary Sister History of blood clots Obesity Diabetes mellitus Hypertension Hyperlipidemia Sister History of blood clots Grandfather History of heart disease Grandmother History of heart disease Grandfather History of heart disease Grandmother Cancer Meds Home Medications and Allergies Allergies Allergy/AdvReac Type Severity Reaction Status Date / Time No Known Drug Allergies Allergy Verified 06/22/25 11:56 Assessment & Plan Assessment & Plan narrative: Follow-up screening colonoscopy. Risks, benefits and alternatives have been Time-Based Coding :: [TOTAL MINUTES] spent with patient and on the chart (including review of chart, obtaining history, exam, reviewing outside data, placing orders, documenting exam and treatment plan, and counseling patient) on [DATE]. PROFEE Aviation Project Engineer Document charge(s): No
--- NOTE | 2025-06-22 12:01 | PM.OP.COLON ---
Operative Date/Time/Diagnoses Date of procedure: 06/22/25 Time of procedure: 13:42 Pre-op diagnosis: See indication and findings Post-op diagnosis: same Procedure & Clinicians Study performed: Colonoscopy Same procedure(s) as scheduled: Yes Indications: Follow-up screening Surgeon: Karen Lyman Anesthesia Type: Other Procedure Notes Procedure in detail: After informed consent was obtained the patient placed in left lateral position. The video colonoscope was introduced the rectum slowly advanced cecum. Preparation was good. On slow withdrawal mucosa was carefully examined. The scope was removed. The patient tolerated procedure well. Blood loss none Complications none Sedation mac Findings 1. Large and long capacious colon. Otherwise negative colonoscopy to cecum 2. [place] seeds prevented visualization of entire colon without clogging the scope. Next time no seeds or nuts.
[2025-06-22] MEDS: LACTATED RINGERS 1,000 ML 42 ML IV (12:06)
[2025-06-22 13:42] VITALS: BP 91/53; PULSE 78; RESP 16; TEMP 36.5; O2SAT 100
[2025-06-22 13:48] VITALS: BP 95/52; PULSE 77; RESP 15; O2SAT 97
[2025-06-22 13:53] VITALS: BP 94/51; PULSE 75; RESP 15; O2SAT 100
[2025-06-22 14:00] VITALS: BP 94/48; PULSE 78; RESP 18; O2SAT 99
== END 2025-06-22 14:29 | disposition home or self-care (01) ==
PROVIDERS: Family Provider Registered Nurse; PCP Registered Nurse; Referring Provider Internal Medicine Gastroenterology; Visit Provider Internal Medicine Gastroenterology
PROC: 0DJD8ZZ Inspection of Lower Intestinal Tract, Via Natural or Artificial Opening Endoscopic (ICD-10-PCS; CPT 45378; principal; 2025-06-22 12:30)
DX: Z12.11 Encounter for screening for malignant neoplasm of colon (principal)
CPT/HCPCS: G0121; J2405; J2704

== ENCOUNTER → 2025-11-08 16:36 | Outpatient (CLI) | payer OTHER, SELFPAY ==
--- NOTE | 2025-11-08 16:38 | DI.RAD.S_ITS ---
PROCEDURE: XR CHEST 2V INDICATIONS: PNEUMONIA TECHNIQUE: 2 views of the chest were acquired. COMPARISON: [facility], CR, XR CHEST 2V, 05/21/2022, 15:03. FINDINGS: Surgical changes and devices: None. Lungs and pleura: Lungs are clear. No pleural effusions or pneumothorax. Mediastinum: Mediastinal contours are normal. Heart size is normal. Bones and chest wall: No suspicious bony abnormalities. Soft tissues appear unremarkable. IMPRESSION: No acute cardiopulmonary abnormalities or focal consolidation. Dictated by: Fidel Dorsey M.D. on 11/09/2025 at 21:17 Approved by: Fidel Dorsey M.D. on 11/09/2025 at 21:18
== END ==
PROVIDERS: Family Provider Registered Nurse; PCP Registered Nurse; Referring Provider Registered Nurse; Visit Provider Registered Nurse
DX: J18.9 Pneumonia, unspecified organism (principal)
CPT/HCPCS: 71046